=== PATIENT | male | born 1945 | race Caucasian/White ===

== ENCOUNTER 2021-03-20 08:23 | Day surgery (SDC) | payer MEDICARE, BC ==
[~2021-03-20 08:23] MED LIST: Midazolam 1 MG/ML 2 ML SDV ONE; Propofol 200 MG/20 ML SDV ONE; fentaNYL 100 MCG/2 ML SDV ONE
[2021-03-20] MEDS ORDERED: Sodium Chloride 0.9% 1,000 ML IV SCH (09:00)
[2021-03-20 10:38] VITALS: BP 148/91; PULSE 80
--- NOTE | 2021-03-20 14:55 | OR ---
DATE OF PROCEDURE: 03/20/2021 SURGEON: Jethro Arora MD PROCEDURE: Colonoscopy. FINDINGS: 1. Ascending colon polyp, approximately 5 mm, completely removed using cold biopsy forceps. 2. Diverticulosis, moderate, limited to sigmoid colon without evidence of diverticulitis or bleeding. 3. Tortuous sigmoid colon. COMPLICATIONS: None. ASSISTANT MANAGER PT: None. ANESTHESIA: MAC. PREOPERATIVE DIAGNOSIS: Family history of colorectal cancer. POSTOPERATIVE DIAGNOSIS: Family history of colorectal cancer. RISKS: Risks, benefits, alternatives, and limitations including, but not limited to infection, bleeding, perforation, false positives and false negatives were explained to the patient and he wished to proceed. PROCEDURE IN DETAIL: The patient was placed in left lateral decubitus position. Digital rectal exam was performed without abnormality. Scope was introduced and advanced atraumatically to the ileocecal valve. A photo was taken of the appendiceal orifice. Within the ascending colon, the aforementioned polyp was identified and completely removed. No evidence of old or new blood. No masses. No colitis. The diverticulosis as described above. Greater than 8 minutes was spent removing the scope. Greater than 90% of the luminal surface could be seen. The patient tolerated the procedure well. Jethro Arora MD /[id number]
== END 2021-03-20 10:45 | disposition home or self-care (01) ==
LOC: JP.SDS 08:23
PROVIDERS: ATTEND Surgery
DX: Z12.11 Encounter for screening for malignant neoplasm of colon (principal); D12.2 Benign neoplasm of ascending colon; K57.30 Diverticulosis of large intestine without perforation or abscess without bleeding; K63.89 Other specified diseases of intestine; K21.9 Gastro-esophageal reflux disease without esophagitis; I10 Essential (primary) hypertension; E78.5 Hyperlipidemia, unspecified; E11.9 Type 2 diabetes mellitus without complications; Z80.0 Family history of malignant neoplasm of digestive organs; Z88.1 Allergy status to other antibiotic agents; Z88.8 Allergy status to other drugs, medicaments and biological substances
CPT/HCPCS: 45380; J2250; J2704; J3010; J7030

== ENCOUNTER 2024-01-16 07:36 | Day surgery (SDC) | payer MEDICARE, BC ==
[2024-01-16] MEDS ORDERED: Sodium Chloride 0.9% 10 ML Syringe FLUSH PRN (08:15)
[2024-01-16 09:13] VITALS: BP 156/95; PULSE 85
== END 2024-01-16 09:15 | disposition home or self-care (01) ==
LOC: JP.SDS 07:36
PROVIDERS: ATTEND Ophthalmology
DX: E11.36 Type 2 diabetes mellitus with diabetic cataract (principal); H25.11 Age-related nuclear cataract, right eye; K21.9 Gastro-esophageal reflux disease without esophagitis
CPT/HCPCS: 66984; V2632

== ENCOUNTER 2024-07-09 06:23 | Day surgery (SDC) | payer MEDICARE, BC ==
[2024-07-09 06:44] LABS: BASOPHILS ABSOLUTE AUTO 0.15 K/uL (0.00-0.10); BASOPHILS PERCENT AUTO 1.5 % (0.1-1.3); EOSINOPHILS ABSOLUTE AUTO 0.49 K/uL (0.00-0.40); HEMATOCRIT 45.2 % (38.4-49.7); HEMOGLOBIN 15.9 g/dL (12.9-16.9); IMMATURE GRAN PERCENT AUTO 0.2 % (0.0-0.7); LYMPHOCYTES ABSOLUTE AUTO 3.05 K/uL (0.8-3.3); LYMPHOCYTES PERCENT AUTO 31.3 % (11.4-47.7); MEAN CORPUSCULAR HGB CONC 35.2 g/dL (31.6-35.5); MEAN CORPUSCULAR VOLUME 93.8 fL (81.4-99.0); MONOCYTES ABSOLUTE AUTO 1.03 K/uL (0.20-0.90); MONOCYTES PERCENT AUTO 10.6 % (3.3-12.6); NEUTROPHILS PERCENT AUTO 51.4 % (40.0-78.1); PLATELET COUNT,PLT 279 K/uL (130-375); RED BLOOD CELL COUNT 4.82 M/uL (4.14-5.76); WHITE BLOOD CELL COUNT,WBC 9.7 K/uL (3.2-11.0)
[2024-07-09 06:45] LABS: IMMATURE GRAN ABSOLUTE AUTO 0.02 K/uL (0.00-0.23)
[2024-07-09] MEDS ORDERED: fentaNYL 250 MCG/5 ML SDV ONE (06:59)
[2024-07-09] MEDS ORDERED: Rocuronium 50 MG/5 ML Vial ONE (07:00)
[2024-07-09] MEDS ORDERED: Ondansetron 4 MG/2 ML SDV ONE (07:00)
[2024-07-09] MEDS ORDERED: Glycopyrrolate 0.2 MG/ML 5 ML MDV ONE (07:00)
[2024-07-09] MEDS ORDERED: Dexamethasone 4 MG/ML SDV ONE (07:00)
[2024-07-09] MEDS ORDERED: Neostigmine Methylsulfate 10 MG/10 ML MDV ONE (07:00)
[2024-07-09] MEDS ORDERED: Propofol 200 MG/20 ML SDV ONE (07:00)
[2024-07-09] MEDS ORDERED: Succinylcholine 200 MG/10 ML MDV ONE (07:00)
[2024-07-09 07:04] LABS: A/G RATIO 0.9 (1.2-2.2); ALANINE AMINOTRANSFERASE,ALT 46 U/L (12-78); ALBUMIN 4.1 g/dL (3.4-5.0); ALKALINE PHOSPHATASE 53 U/L (46-116); ANION GAP 13.2 mmol/L (5.0-14.0); ASPARTATE AMNIOTRANSFERASE,AST 24 U/L (15-37); BILIRUBIN TOTAL 0.5 mg/dL (0.2-1.0); BLOOD UREA NITROGEN,BUN 20 mg/dL (7-18); CALCIUM 9.4 mg/dL (8.5-10.1); CARBON DIOXIDE,CO2 25 mmol/L (21-32); CHLORIDE,CL 102 mmol/L (100-108); CREATININE 1.4 mg/dL (0.8-1.3); EST CRCL DRUG DOSING (CG) 41.17 mL/min; ESTIMATED GFR 52 mL/min (>60); GLUCOSE RANDOM 175 mg/dL (74-106); POTASSIUM,K 3.9 mmol/L (3.6-5.2); PROTEIN TOTAL,TP 8.5 g/dL (6.4-8.2); SODIUM,NA 140 mmol/L (140-148)
[2024-07-09] MEDS: Lactated Ringers 1,000 ML IV SCH (07:05)
[2024-07-09] MEDS: metroNIDAZOLE/Normal Saline 500 MG in Premix Bag 1 BAG IV ONE (07:32)
[2024-07-09] MEDS: Clindamycin in 0.9 % Sod Chlor 600 MG in Premix Bag 1 BAG IV ONE (08:00)
[2024-07-09] MEDS: Bupivacaine 0.5%/EPINEPHrine 1:200,000 50 ML MDV ONE (08:20)
[2024-07-09] MEDS ORDERED: fentaNYL 100 MCG/2 ML SDV ONE (09:02)
[2024-07-09 10:32] VITALS: BP 146/82; PULSE 88
[2024-07-09] MEDS: Acetaminophen/HYDROcodone 325-5 MG Tab PO ONE (11:03)
== END 2024-07-09 11:09 ==
LOC: JP.SDS 06:23
PROVIDERS: ATTEND Surgery
DX: K40.31 Unilateral inguinal hernia, with obstruction, without gangrene, recurrent (principal); I10 Essential (primary) hypertension; E11.9 Type 2 diabetes mellitus without complications; E66.9 Obesity, unspecified; Z88.8 Allergy status to other drugs, medicaments and biological substances; Z79.899 Other long term (current) drug therapy; Z79.84 Long term (current) use of oral hypoglycemic drugs; Z79.82 Long term (current) use of aspirin; Z68.27 Body mass index [BMI] 27.0-27.9, adult
CPT/HCPCS: 36415; 49651; 80053; 85025; A9270; C1781; J0171; J0330; J1100; J1596; J1836; J2405; J2704; J2710; J2795; J3010; J3490; J7120